=== PATIENT | female | born 1940 | race Two or more races ===

== ENCOUNTER → 2018-05-15 | Outpatient (CLI) | payer OTHER | END | disposition home or self-care (01) | LOC: LAB 06:53 | PROVIDERS: ATTEND Physician Assistant | DX: N39.0 Urinary tract infection, site not specified (principal) | CPT/HCPCS: 87086 ==

== ENCOUNTER → 2018-05-23 | Outpatient (CLI) | payer OTHER ==
[2018-05-23 08:08] LABS: Basophils # (auto) 0 uL; Eosinophils # (auto) 0.1 uL; Eosinophils % (auto) 1.4 % (0.0-7.0); Hematocrit 44.8 % (36.0-46.0); Lymphocytes # (auto) 1.5 uL; Lymphocytes % (auto) 30.2 % (10.0-50.0); Mean Corpuscular Hgb Conc. 33.5 g/dL (32.0-36.0); Mean Corpuscular Volume 89.6 fL (80.0-100.0); Monocytes # (auto) 0.3 uL; Monocytes % (auto) 6.6 % (0.0-12.0); Neutrophils % (auto) 60.8 % (37.0-80.0); Nucleated Red Blood Cells % 0.1 %; Platelet Count (auto) 211 10^3/uL (140-450); White Blood Cell 4.9 10^3/uL (4.4-10.8)
[2018-05-23 17:41] LABS: Potassium 4.5 mmol/L (3.5-5.1)
[2018-05-23 17:48] LABS: Albumin 3.3 g/dL (3.4-5.0); BUN/Creatinine Ratio 22.3; Calcium 8.8 mg/dL (8.5-10.1)
[2018-05-23 18:21] LABS: Bilirubin, Total 0.4 mg/dL (0.2-1.0); Total Protein 6.9 g/dL (6.4-8.2)
== END | disposition home or self-care (01) ==
LOC: LAB 07:21
PROVIDERS: ATTEND Physician Assistant
DX: Z12.11 Encounter for screening for malignant neoplasm of colon (principal); F41.9 Anxiety disorder, unspecified; E03.9 Hypothyroidism, unspecified; I10 Essential (primary) hypertension; K21.9 Gastro-esophageal reflux disease without esophagitis; N30.00 Acute cystitis without hematuria
CPT/HCPCS: 36415; 80053; 80061; 82270; 84443; 85025

== ENCOUNTER → 2018-05-29 | Outpatient (CLI) | payer OTHER | END | disposition home or self-care (01) | LOC: LAB 15:54 | PROVIDERS: ATTEND Physician Assistant | DX: N39.0 Urinary tract infection, site not specified (principal) | CPT/HCPCS: 87086; 87088; 87186 ==

== ENCOUNTER → 2018-10-07 | Outpatient (CLI) | payer OTHER | END | disposition home or self-care (01) | LOC: LAB 14:26 | PROVIDERS: ATTEND Internal Medicine | DX: N39.0 Urinary tract infection, site not specified (principal) | CPT/HCPCS: 87086 ==

== ENCOUNTER → 2018-10-28 | Outpatient (CLI) | payer OTHER ==
[2018-10-28 09:15] LABS: Cholesterol 195 mg/dL (< 200); HDL Cholesterol 62 mg/dL (40-59); LDL Cholesterol 120 mg/dL (< 100); Triglycerides 92 mg/dL (< 150)
== END | disposition home or self-care (01) ==
LOC: LAB 07:38
PROVIDERS: ATTEND Internal Medicine
DX: E03.9 Hypothyroidism, unspecified (principal)
CPT/HCPCS: 36415; 80061; 84443

== ENCOUNTER → 2018-11-26 | Outpatient (CLI) | payer OTHER | END | disposition home or self-care (01) | LOC: LAB 08:32 | PROVIDERS: ATTEND Internal Medicine | DX: N39.0 Urinary tract infection, site not specified (principal); E03.9 Hypothyroidism, unspecified | CPT/HCPCS: 36415; 83036; 84443; 87086 ==

== ENCOUNTER → 2018-12-15 | Outpatient (CLI) | payer OTHER ==
[2018-12-15 12:57] LABS: Urine Bacteria NONE SEEN /hpf (None Seen); Urine Blood Negative /uL (Negative); Urine Specific Gravity 1.021 (1.001-1.035); Urine WBC 4 /hpf (0 - 5)
== END | disposition home or self-care (01) ==
LOC: LAB 12:26
PROVIDERS: ATTEND Urology
DX: N39.0 Urinary tract infection, site not specified (principal)
CPT/HCPCS: 81001; 87086

== ENCOUNTER → 2019-01-05 | Outpatient (CLI) | payer OTHER | END | disposition home or self-care (01) | LOC: LAB 11:09 | PROVIDERS: ATTEND Urology | DX: N39.0 Urinary tract infection, site not specified (principal) | CPT/HCPCS: 36415; 82306; 82565; 84520 ==

== ENCOUNTER → 2019-05-25 | Outpatient (CLI) | payer OTHER ==
[2019-05-25 08:16] LABS: Cholesterol 194 mg/dL (< 200)
[2019-05-25 08:18] LABS: HDL Cholesterol 56 mg/dL (40-59); LDL Cholesterol 123 mg/dL (< 100); Triglycerides 96 mg/dL (< 150)
== END | disposition home or self-care (01) ==
LOC: LAB 07:29
PROVIDERS: ATTEND Internal Medicine
DX: Z12.11 Encounter for screening for malignant neoplasm of colon (principal); E03.9 Hypothyroidism, unspecified
CPT/HCPCS: 36415; 80061; 82270; 83036; 84443

== ENCOUNTER → 2019-09-02 | Outpatient (CLI) | payer OTHER | END | disposition home or self-care (01) | LOC: LAB 11:41 | PROVIDERS: ATTEND Internal Medicine | DX: I10 Essential (primary) hypertension (principal); R32 Unspecified urinary incontinence | CPT/HCPCS: 36415; 85652; 86038 ==

== ENCOUNTER → 2020-03-24 | Outpatient (CLI) | payer OTHER | END | disposition home or self-care (01) | LOC: LAB 15:17 | PROVIDERS: ATTEND Urology | DX: N39.0 Urinary tract infection, site not specified (principal) | CPT/HCPCS: 87086 ==

== ENCOUNTER → 2020-04-12 | Outpatient (CLI) | payer OTHER ==
[2020-04-12 10:44] LABS: Cholesterol 238 mg/dL (< 200); HDL Cholesterol 67 mg/dL (40-59); LDL Cholesterol 148 mg/dL (< 100); Triglycerides 84 mg/dL (< 150)
== END | disposition home or self-care (01) ==
LOC: LAB 09:40
PROVIDERS: ATTEND Internal Medicine
DX: Z12.11 Encounter for screening for malignant neoplasm of colon (principal); I10 Essential (primary) hypertension
CPT/HCPCS: 36415; 80061; 82270; 84443

== ENCOUNTER → 2020-05-13 | Outpatient (CLI) | payer OTHER ==
[2020-05-13 12:20] LABS: Albumin 3.2 g/dL (3.4-5.0); Bilirubin, Direct 0.1 mg/dL (0-0.2)
[2020-05-13 12:23] LABS: Bilirubin, Total 0.3 mg/dL (0.2-1.0); Total Protein 6.9 g/dL (6.4-8.2)
== END | disposition home or self-care (01) ==
LOC: LAB 11:37
PROVIDERS: ATTEND Internal Medicine
DX: E78.5 Hyperlipidemia, unspecified (principal)
CPT/HCPCS: 36415; 80076

== ENCOUNTER → 2020-07-19 | Outpatient (CLI) | payer OTHER ==
[2020-07-19 11:01] LABS: Albumin 3.5 g/dL (3.4-5.0); Bilirubin, Direct 0.2 mg/dL (0-0.2)
[2020-07-19 11:03] LABS: Bilirubin, Total 0.6 mg/dL (0.2-1.0); Total Protein 7.7 g/dL (6.4-8.2)
== END | disposition home or self-care (01) ==
LOC: LAB 10:06
PROVIDERS: ATTEND Internal Medicine
DX: E78.5 Hyperlipidemia, unspecified (principal)
CPT/HCPCS: 36415; 80061; 80076; 83036

== ENCOUNTER → 2020-08-23 | Outpatient (CLI) | payer OTHER | END | disposition home or self-care (01) | LOC: LAB 13:33 | PROVIDERS: ATTEND Internal Medicine | DX: E03.9 Hypothyroidism, unspecified (principal) | CPT/HCPCS: 36415; 84443 ==

== ENCOUNTER → 2021-03-01 | Outpatient (CLI) | payer OTHER | END | disposition home or self-care (01) | LOC: LAB 11:53 | PROVIDERS: ATTEND Internal Medicine | DX: R06.02 Shortness of breath (principal) | CPT/HCPCS: 36415; 83880; 85379 ==

== ENCOUNTER → 2021-11-02 | Outpatient (CLI) | payer OTHER ==
[2021-11-02 15:22] LABS: Urine Bacteria NONE SEEN /hpf (None Seen); Urine Blood Negative /uL (Negative); Urine Specific Gravity 1.016 (1.001-1.035); Urine WBC 1 /hpf (0 - 5)
== END | disposition home or self-care (01) ==
LOC: LAB 14:59
PROVIDERS: ATTEND Urology
DX: N39.0 Urinary tract infection, site not specified (principal)
CPT/HCPCS: 81001; 87086

== ENCOUNTER → 2021-12-21 | Outpatient (CLI) | payer OTHER | END | disposition home or self-care (01) | LOC: LAB 14:47 | PROVIDERS: ATTEND Urology | DX: N39.0 Urinary tract infection, site not specified (principal) | CPT/HCPCS: 87086 ==

== ENCOUNTER → 2022-02-13 | Outpatient (CLI) | payer OTHER ==
[2022-02-13 10:36] LABS: Basophils # (auto) 0 10 ^3/uL (0-0.2); Basophils % (auto) 0.6 % (0.0-2.0); Eosinophils # (auto) 0 10 ^3/uL (0-0.8); Eosinophils % (auto) 0.4 % (0.0-7.0); Hematocrit 43.8 % (36.0-46.0); Hemoglobin 14.5 g/dL (12.2-16.2); Lymphocytes # (auto) 1.7 10 ^3/uL (0.4-5.4); Lymphocytes % (auto) 31.7 % (10.0-50.0); Mean Corpuscular Hemoglobin 28.9 pg (28.0-32.0); Mean Corpuscular Volume 87.6 fL (80.0-100.0); Monocytes # (auto) 0.4 10 ^3/uL (0-1.3); Monocytes % (auto) 7.1 % (0.0-12.0); Neutrophils # (auto) 3.2 10 ^3/uL (1.6-8.6); Neutrophils % (auto) 60.2 % (37.0-80.0); Red Cell Distribution Width 12.9 % (11.8-14.3); White Blood Cell 5.3 10^3/uL (4.4-10.8)
[2022-02-13 11:33] LABS: Albumin 3.3 g/dL (3.4-5.0); BUN/Creatinine Ratio 14.9; Bilirubin, Total 0.5 mg/dL (0.2-1.0); Total Protein 7.2 g/dL (6.4-8.2)
== END | disposition home or self-care (01) ==
LOC: LAB 09:40
PROVIDERS: ATTEND Internal Medicine
DX: Z00.00 Encounter for general adult medical examination without abnormal findings (principal); Z12.11 Encounter for screening for malignant neoplasm of colon
CPT/HCPCS: 36415; 80053; 80061; 84443; 85025

== ENCOUNTER → 2022-05-24 | Outpatient (CLI) | payer OTHER ==
[2022-05-24 14:13] LABS: Urine Bacteria FEW /hpf (None Seen); Urine Blood Negative /uL (Negative); Urine Specific Gravity 1.015 (1.001-1.035); Urine WBC 3 /hpf (0 - 5)
== END | disposition home or self-care (01) ==
LOC: LAB 13:04
PROVIDERS: ATTEND Internal Medicine
DX: N39.0 Urinary tract infection, site not specified (principal)
CPT/HCPCS: 81001; 87086

== ENCOUNTER → 2022-11-06 | Outpatient (CLI) | payer OTHER ==
[2022-11-06 11:56] LABS: Potassium 4.1 mmol/L (3.5-5.1)
[2022-11-06 12:09] LABS: Albumin 3.5 g/dL (3.4-5.0); BUN/Creatinine Ratio 20.4 (10.0-20.0); Bilirubin, Total 0.5 mg/dL (0.2-1.0); Calcium 9.1 mg/dL (8.5-10.1); Total Protein 7.6 g/dL (6.4-8.2)
== END | disposition home or self-care (01) ==
LOC: LAB 10:21
PROVIDERS: ATTEND Internal Medicine
DX: Z00.00 Encounter for general adult medical examination without abnormal findings (principal); E03.9 Hypothyroidism, unspecified
CPT/HCPCS: 36415; 80053; 80061; 82306

== ENCOUNTER → 2022-12-06 | Outpatient (CLI) | payer OTHER ==
[2022-12-06 11:27] LABS: Calcium 9.5 mg/dL (8.5-10.1); Potassium 4.1 mmol/L (3.5-5.1)
[2022-12-06 11:31] LABS: BUN/Creatinine Ratio 18.4 (10.0-20.0)
== END | disposition home or self-care (01) ==
LOC: LAB 10:48
PROVIDERS: ATTEND Internal Medicine
DX: N18.30 Chronic kidney disease, stage 3 unspecified (principal)
CPT/HCPCS: 36415; 80048

== ENCOUNTER → 2023-01-02 | Outpatient (CLI) | payer OTHER ==
[2023-01-02 13:41] LABS: Urine Bacteria NONE SEEN /hpf (None Seen); Urine Blood Negative /uL (Negative); Urine Specific Gravity 1.005 (1.001-1.035); Urine WBC 1 /hpf (0 - 5)
== END | disposition home or self-care (01) ==
LOC: LAB 13:20
PROVIDERS: ATTEND Internal Medicine
DX: N39.0 Urinary tract infection, site not specified (principal)
CPT/HCPCS: 81001; 87086

== ENCOUNTER → 2023-02-04 | Outpatient (CLI) | payer OTHER ==
[2023-02-04 07:01] LABS: Urine Bacteria FEW /hpf (None Seen); Urine Blood Negative /uL (Negative); Urine Specific Gravity 1.017 (1.001-1.035); Urine WBC 5 /hpf (0 - 5)
== END | disposition home or self-care (01) ==
LOC: LAB 06:47
PROVIDERS: ATTEND Urology
DX: N39.0 Urinary tract infection, site not specified (principal)
CPT/HCPCS: 81001; 87086

== ENCOUNTER → 2023-03-06 | Outpatient (CLI) | payer OTHER ==
[2023-03-06 11:10] LABS: Urine Bacteria FEW /hpf (None Seen); Urine Blood Negative /uL (Negative); Urine WBC 40 /hpf (0 - 5)
== END | disposition home or self-care (01) ==
LOC: LAB 09:16
PROVIDERS: ATTEND Internal Medicine
DX: N39.0 Urinary tract infection, site not specified (principal)
CPT/HCPCS: 81001; 87086

== ENCOUNTER → 2023-04-11 | Outpatient (CLI) | payer OTHER | END | disposition home or self-care (01) | LOC: XYW 09:28 | PROVIDERS: ATTEND Student in an Organized Health Care Education/Training Program | DX: I51.7 Cardiomegaly (principal); I51.89 Other ill-defined heart diseases; R07.89 Other chest pain | CPT/HCPCS: 93306 ==

== ENCOUNTER → 2023-04-25 | Outpatient (CLI) | payer OTHER ==
[~2023-04-25] VITALS: Ht 154.9 cm; Wt 79.4 kg
[~2023-04-25] MED LIST: ADENOSINE 67 MG in GIVE UN-DILUTED 0 ML IV ONE
== END | disposition home or self-care (01) ==
LOC: XYW 08:34
PROVIDERS: ATTEND Internal Medicine
DX: Z01.810 Encounter for preprocedural cardiovascular examination (principal); R07.89 Other chest pain
CPT/HCPCS: 78452; 93017; A9500; J0153

== ENCOUNTER 2023-05-24 12:46 | Emergency (ER) | payer OTHER ==
[~2023-05-24] VITALS: Ht 154.9 cm; Wt 80.1 kg
[2023-05-24 13:34] VITALS: BP 176/68; PULSE 71; RESP 18; O2SAT 95
[2023-05-24] MEDS ORDERED: ACETAMINOPHEN 500 MG TAB PO ONE (14:00)
[2023-05-24 14:41] VITALS: TEMP 97.3
[2023-05-24] MEDS ORDERED: PRED20TA2 PO (14:58)
[2023-05-24] MEDS ORDERED: ACET-1080 PO (14:58)
== END 2023-05-24 15:06 | disposition home or self-care (01) ==
LOC: ER 12:46
DX: M50.30 Other cervical disc degeneration, unspecified cervical region (principal); R51.9 Headache, unspecified; I10 Essential (primary) hypertension; Z88.8 Allergy status to other drugs, medicaments and biological substances
CPT/HCPCS: 70450

== ENCOUNTER → 2023-06-11 | Outpatient (CLI) | payer OTHER ==
[~2023-06-11] MED LIST changes: +ACET-1080 PO; -ADENOSINE 67 MG in GIVE UN-DILUTED 0 ML IV ONE; +PRED20TA2 PO
[2023-06-11 10:24] LABS: Urine Bacteria None Seen /hpf (None Seen); Urine WBC None Seen /hpf (0 - 5)
[2023-06-11 10:32] LABS: Basophils # (auto) 0 10 ^3/uL (0-0.2); Basophils % (auto) 0.4 % (0.0-2.0); Eosinophils # (auto) 0 10 ^3/uL (0-0.8); Eosinophils % (auto) 0.7 % (0.0-7.0); Hematocrit 44.7 % (36.0-46.0); Hemoglobin 15.1 g/dL (12.2-16.2); Lymphocytes # (auto) 1.9 10 ^3/uL (0.4-5.4); Lymphocytes % (auto) 28.8 % (10.0-50.0); Mean Corpuscular Hemoglobin 29.6 pg (28.0-32.0); Mean Corpuscular Hgb Conc. 33.8 g/dL (32.0-36.0); Mean Corpuscular Volume 87.5 fL (80.0-100.0); Monocytes # (auto) 0.5 10 ^3/uL (0-1.3); Monocytes % (auto) 8.2 % (0.0-12.0); Neutrophils % (auto) 61.9 % (37.0-80.0); Nucleated Red Blood Cells % 0.1 %; Red Blood Cells 5.11 10^6/uL (4.0-5.20); Red Cell Distribution Width 13.3 % (11.8-14.3); White Blood Cell 6.4 10^3/uL (4.4-10.8)
[2023-06-11 11:35] LABS: Anion Gap 6 (5-15); Carbon Dioxide 30 mmol/L (20-30); Chloride 104 mmol/L (98-107); Potassium 4.5 mmol/L (3.5-5.1); Sodium 140 mmol/L (136-145)
[2023-06-11 11:36] LABS: Calcium 9.3 mg/dL (8.5-10.1)
[2023-06-11 11:41] LABS: BUN/Creatinine Ratio 15.1 (10.0-20.0); Blood Urea Nitrogen 16 mg/dL (9-23); Glucose 92 mg/dL (74-106)
[2023-06-11 13:44] LABS: Urine Blood Negative /uL (Negative); Urine Clarity Clear (Clear); Urine Color Straw (Yellow); Urine Protein, UAD Negative (Negative); Urine Specific Gravity 1.013 (1.001-1.035); Urine Urobilinogen Normal (Negative); Urine pH 7.5 (5.0-8.0)
== END | disposition home or self-care (01) ==
LOC: LAB 10:16
PROVIDERS: ATTEND Internal Medicine
DX: Z12.11 Encounter for screening for malignant neoplasm of colon (principal); N18.30 Chronic kidney disease, stage 3 unspecified
CPT/HCPCS: 36415; 80048; 81001; 82270; 85025

== ENCOUNTER 2023-07-18 09:51 | Day surgery (SDC) | payer OTHER ==
[2023-07-17 14:52] LABS: Basophils # (auto) 0 10 ^3/uL (0-0.2); Basophils % (auto) 0.4 % (0.0-2.0); Eosinophils # (auto) 0 10 ^3/uL (0-0.8); Eosinophils % (auto) 0.5 % (0.0-7.0); Hematocrit 44.3 % (36.0-46.0); Hemoglobin 14.8 g/dL (12.2-16.2); Lymphocytes # (auto) 2.4 10 ^3/uL (0.4-5.4); Lymphocytes % (auto) 27.2 % (10.0-50.0); Mean Corpuscular Hemoglobin 28.9 pg (28.0-32.0); Mean Corpuscular Hgb Conc. 33.3 g/dL (32.0-36.0); Mean Corpuscular Volume 86.7 fL (80.0-100.0); Monocytes # (auto) 0.6 10 ^3/uL (0-1.3); Monocytes % (auto) 6.8 % (0.0-12.0); Neutrophils # (auto) 5.8 10 ^3/uL (1.6-8.6); Neutrophils % (auto) 65.1 % (37.0-80.0); Red Blood Cells 5.11 10^6/uL (4.0-5.20); Red Cell Distribution Width 13.3 % (11.8-14.3); White Blood Cell 8.9 10^3/uL (4.4-10.8)
[2023-07-17 14:59] LABS: Urine Bacteria NONE SEEN /hpf (None Seen); Urine Blood Negative /uL (Negative); Urine Clarity HAZY (Clear); Urine Color Yellow (Yellow); Urine Protein, UAD Negative (Negative); Urine Specific Gravity 1.021 (1.001-1.035); Urine Urobilinogen Normal (Negative); Urine WBC 74 /hpf (0 - 5); Urine WBC Clumps PRESENT /hpf (None Seen)
[2023-07-17 15:23] LABS: INR 1.03 (0.9-1.15); Partial Thromboplastin Time 33.3 SEC (24.5-34.5); Prothrombin Time 10.8 sec (9.3-11.8)
[2023-07-17 16:17] LABS: Alanine Aminotransferase 23 U/L (7-40); Albumin 4.4 g/dL (3.2-4.8); Alkaline Phosphatase 93 U/L (46-116); Anion Gap 6 (5-15); Aspartate Aminotransferase 19 U/L (13-40); BUN/Creatinine Ratio 16.9 (10.0-20.0); Bilirubin, Total 0.4 mg/dL (0.2-1.0); Blood Urea Nitrogen 20 mg/dL (9-23); Calcium 9.6 mg/dL (8.7-10.4); Carbon Dioxide 29 mmol/L (20-30); Chloride 105 mmol/L (98-107); Potassium 4.5 mmol/L (3.5-5.1); Sodium 140 mmol/L (136-145); Total Protein 7.1 g/dL (5.7-8.2)
[2023-07-17 17:00] LABS: Glucose 99 mg/dL (74-106)
[~2023-07-18] VITALS: Ht 157.5 cm; Wt 79.4 kg
[~2023-07-18 09:51] MED LIST changes: -ACET-1080 PO; +ALEN70SO2 OR; +ASCO500T11 PO; +ASPI1TAB20 PO; +ATOR10TA52 PO; +B-CO1CAP18 PO; +BACL20TA PO; +BLAC1CAP4 PO; +CALC1TAB92 PO; +CHOL500046 PO; +CRAN250T PO; +FLUO20TA36 PO; +HYDR25TA5 PO; +LACTCAP35 OR; +LEV100T PO; +LISI20TA56 PO; +MULT-1018 OR; +OMEGCAP2 OR; +OXYB5TAB10 PO; +PANT40TA2 PO; -PRED20TA2 PO; +ZINC50TA7 PO
[2023-07-18] MEDS ORDERED: ceFAZolin 2 GM/D5W100ml 100 ML IV ONE (12:50)
[2023-07-18] MEDS ORDERED: IOHEXOL 300 MG/ML 100ML BOTTLE IJ ONE (13:24)
[2023-07-18] MEDS ORDERED: ONDANSETRON HCL 4 MG/2 ML VIAL IV PRN (13:30)
[2023-07-18] MEDS ORDERED: PROPOFOL 10 MG/ML 20 ML IV ONE (13:47)
[2023-07-18] MEDS ORDERED: fentaNYL CITRATE 100 MCG/2 ML VL ONE (13:47)
[2023-07-18] MEDS ORDERED: DexAMETHasone SOD PHOS 10MG/1ML VIAL INJ ONE (13:48)
[2023-07-18] MEDS ORDERED: ONDANSETRON HCL 4 MG/2 ML VIAL ONE (13:48)
[2023-07-18 13:58] VITALS: TEMP 98; O2SAT 100
[2023-07-18 14:58] VITALS: BP 110/46; PULSE 93; RESP 14; O2SAT 92
== END 2023-07-18 15:10 | disposition home or self-care (01) ==
LOC: SUR 09:51
PROVIDERS: ATTEND Urology
DX: N13.30 Unspecified hydronephrosis (principal)
CPT/HCPCS: 36415; 52005; 74018; 76000; 80053; 81001; 85025; 85610; 85730; 87086; C1758; J1100; J2405; J2704; J3010; Q9967

== ENCOUNTER → 2023-08-06 | Outpatient (CLI) | payer OTHER ==
[2023-08-06 14:55] LABS: Urine Bacteria NONE SEEN /hpf (None Seen); Urine Blood Negative /uL (Negative); Urine Clarity Clear (Clear); Urine Color Yellow (Yellow); Urine Protein, UAD Negative (Negative); Urine Specific Gravity 1.017 (1.001-1.035); Urine Urobilinogen Normal (Negative); Urine WBC 4 /hpf (0 - 5); Urine pH 7.5 (5.0-8.0)
== END | disposition home or self-care (01) ==
LOC: LAB 14:10
PROVIDERS: ATTEND Urology
DX: N13.30 Unspecified hydronephrosis (principal); N39.0 Urinary tract infection, site not specified
CPT/HCPCS: 81001; 87086; 87088; 87186

== ENCOUNTER → 2023-08-29 | Outpatient (CLI) | payer OTHER ==
[2023-08-29 16:01] LABS: Urine Bacteria NONE SEEN /hpf (None Seen); Urine Blood Negative /uL (Negative); Urine Clarity Clear (Clear); Urine Color Yellow (Yellow); Urine Hyaline Cast MOD /lpf (0 - 2); Urine Mucus FEW (None Seen); Urine Protein, UAD TRACE (Negative); Urine Specific Gravity 1.022 (1.001-1.035); Urine Urobilinogen Normal (Negative); Urine WBC 2 /hpf (0 - 5)
== END | disposition home or self-care (01) ==
LOC: LAB 15:34
PROVIDERS: ATTEND Urology
DX: N39.0 Urinary tract infection, site not specified (principal)
CPT/HCPCS: 81001; 87086

== ENCOUNTER → 2023-09-10 | Outpatient (CLI) | payer OTHER ==
[2023-09-10 15:49] LABS: Chloride 106 mmol/L (98-107); Sodium 138 mmol/L (136-145)
[2023-09-10 15:50] LABS: Anion Gap 5 (5-15); Carbon Dioxide 27 mmol/L (20-30)
[2023-09-10 15:51] LABS: Calcium 9.8 mg/dL (8.5-10.1)
[2023-09-10 15:55] LABS: Glucose 92 mg/dL (74-106)
[2023-09-10 15:56] LABS: BUN/Creatinine Ratio 20.2 (10.0-20.0); Blood Urea Nitrogen 25 mg/dL (9-23)
== END | disposition home or self-care (01) ==
LOC: LAB 15:16
PROVIDERS: ATTEND Internal Medicine
DX: N18.30 Chronic kidney disease, stage 3 unspecified (principal); N39.0 Urinary tract infection, site not specified
CPT/HCPCS: 36415; 80048; 84443

== ENCOUNTER → 2023-09-18 | Outpatient (CLI) | payer OTHER | END | disposition home or self-care (01) | LOC: LAB 16:18 | PROVIDERS: ATTEND Internal Medicine | DX: N39.0 Urinary tract infection, site not specified (principal) | CPT/HCPCS: 87086 ==

== ENCOUNTER 2023-10-03 00:46 | Inpatient (IN) | payer OTHER ==
[~2023-10-03] VITALS: Ht 154.9 cm; Wt 80.0 kg
[2023-10-03] MEDS: IOHEXOL 350 MG/ML 100ML IJ ONE ×2 (01:24→02:46)
[2023-10-03 01:25] VITALS: PULSE 78; RESP 22; O2SAT 94
[2023-10-03] MEDS ORDERED: VANCOMYCIN PER PHARMACY 0 MG IV SCH (01:30)
[2023-10-03] MEDS: ALBUMIN 25% 100 ML IV ONE (01:58)
[2023-10-03] MEDS: ONDANSETRON HCL 4 MG/2 ML VIAL IV ONE ×2 (01:59→06:57)
[2023-10-03] MEDS: PANTOPRAZOLE 40 MG/10 ML VIAL INJ IV ONE (01:59)
[2023-10-03] MEDS: SODIUM CHLORIDE 0.9% 2,100 ML IV ONE (01:59)
[2023-10-03] MEDS: fentaNYL CITRATE 100 MCG/2 ML VL IV ONE ×2 (02:07→06:57)
[2023-10-03 02:10] LABS: Basophils # (auto) 0 10 ^3/uL (0-0.2); Eosinophils # (auto) 0 10 ^3/uL (0-0.8); Eosinophils % (auto) 0.1 % (0.0-7.0); Hematocrit 42.8 % (36.0-46.0); Hemoglobin 13.8 g/dL (12.2-16.2); Lymphocytes # (auto) 0.6 10 ^3/uL (0.4-5.4); Lymphocytes % (auto) 4.9 % (10.0-50.0); Mean Corpuscular Hemoglobin 28.7 pg (28.0-32.0); Mean Corpuscular Hgb Conc. 32.3 g/dL (32.0-36.0); Mean Corpuscular Volume 88.8 fL (80.0-100.0); Monocytes # (auto) 0.2 10 ^3/uL (0-1.3); Nucleated Red Blood Cells % 0.1 %; Red Blood Cells 4.82 10^6/uL (4.0-5.20); Red Cell Distribution Width 13.3 % (11.8-14.3); White Blood Cell 11.8 10^3/uL (4.4-10.8)
[2023-10-03 02:15] LABS: Alanine Aminotransferase 971 U/L (7-40); Alkaline Phosphatase 465 U/L (46-116); Anion Gap 12 (5-15); BUN/Creatinine Ratio 14.1 (10.0-20.0); Bilirubin, Total 1.1 mg/dL (0.2-1.0); Blood Urea Nitrogen 24 mg/dL (9-23); Calcium 9.3 mg/dL (8.7-10.4); Carbon Dioxide 21 mmol/L (20-30); Chloride 101 mmol/L (98-107); Glucose 190 mg/dL (74-106); Potassium 3.7 mmol/L (3.5-5.1); Sodium 134 mmol/L (136-145)
[2023-10-03 02:16] LABS: Total Protein 6.7 g/dL (5.7-8.2)
[2023-10-03 02:25] LABS: Lactic Acid w/Reflex 2.5 mmol/L (0.4-2.0)
[2023-10-03 02:26] LABS: Aspartate Aminotransferase 2211 U/L (13-40)
[2023-10-03 02:48] LABS: Magnesium 1.7 mg/dL (1.6-2.6)
[2023-10-03 04:19] LABS: INR 1.14 (0.9-1.15); Partial Thromboplastin Time 26.8 SEC (24.5-34.5); Prothrombin Time 11.9 sec (9.3-11.8)
[2023-10-03] MEDS: VANCOMYCIN 1GM/200ML 200 ML IV SCH (05:09)
[2023-10-03] MEDS: PIPERACILLIN-TAZOB 3.375GM 100 ML IV SCH ×2 (06:22→12:00)
[2023-10-03] MEDS: SODIUM CHLORIDE 0.9% 1,000 ML IV SCH (09:45)
[2023-10-03] MEDS ORDERED: DOCUSATE SOD 100 MG CAP PO PRN (09:45)
[2023-10-03] MEDS ORDERED: MORPHINE SULFATE 4 MG/ML SYR/VIAL IV PRN (09:45)
[2023-10-03] MEDS ORDERED: MORPHINE SULFATE INJ 2 MG/ml SYRG IV PRN (09:45)
[2023-10-03] MEDS ORDERED: LORazepam 2MG/ML-1ML VIAL IV PRN (09:45)
[2023-10-03] MEDS: PANTOPRAZOLE 40 MG/10 ML VIAL INJ IV SCH (10:00)
[2023-10-03] MEDS: LEVOTHYROXINE SODIUM 100 MCG TAB PO SCH (10:00)
[2023-10-03 11:45] LABS: Hepatitis B Surface Antigen Negative (Negative)
[2023-10-03] MEDS ORDERED: PIPERACILLIN-TAZOB 3.375GM 100 ML IV SCH ×2 (12:00→14:00)
[2023-10-03 12:05] LABS: Hepatitis A Ab IgM Negative
[2023-10-03 12:06] LABS: Hepatitis B Core IgM Negative
[2023-10-03 12:07] LABS: Hepatitis C Antibody Negative (Negative)
[2023-10-03 14:19] LABS: Urine Bacteria FEW /hpf (None Seen); Urine Blood 2+ /uL (Negative); Urine Clarity Clear (Clear); Urine Color Yellow (Yellow); Urine Mucus FEW (None Seen); Urine Protein, UAD 1+ (Negative); Urine Specific Gravity 1.025 (1.001-1.035); Urine WBC 2 /hpf (0 - 5)
[2023-10-03 14:26] LABS: Creatinine, Urine 47.32 mg/dL (30.0-125.0)
[2023-10-03 19:30] VITALS: PULSE 69; RESP 16; O2SAT 95
[2023-10-04] VITALS (8 sets, daily range): BP systolic 105–126; BP diastolic 44–58; PULSE 48–98; RESP 18–19; TEMP 97.3–98.4; O2SAT 91–97
[2023-10-04 05:39] LABS: Basophils # (auto) 0 10 ^3/uL (0-0.2); Basophils % (auto) 0.4 % (0.0-2.0); Eosinophils # (auto) 0.2 10 ^3/uL (0-0.8); Eosinophils % (auto) 3.2 % (0.0-7.0); Hematocrit 34.9 % (36.0-46.0); Hemoglobin 11.7 g/dL (12.2-16.2); Lymphocytes # (auto) 1.3 10 ^3/uL (0.4-5.4); Lymphocytes % (auto) 20.4 % (10.0-50.0); Mean Corpuscular Hgb Conc. 33.5 g/dL (32.0-36.0); Mean Corpuscular Volume 86.5 fL (80.0-100.0); Monocytes # (auto) 0.5 10 ^3/uL (0-1.3); Monocytes % (auto) 7.1 % (0.0-12.0); Neutrophils # (auto) 4.3 10 ^3/uL (1.6-8.6); Neutrophils % (auto) 68.9 % (37.0-80.0); Nucleated Red Blood Cells % 0.1 %; Red Blood Cells 4.03 10^6/uL (4.0-5.20); Red Cell Distribution Width 12.9 % (11.8-14.3); White Blood Cell 6.3 10^3/uL (4.4-10.8)
[2023-10-04 06:06] LABS: Albumin 3.7 g/dL (3.2-4.8); Alkaline Phosphatase 398 U/L (46-116); Anion Gap 7 (5-15); Aspartate Aminotransferase > 1000 U/L (13-40); BUN/Creatinine Ratio 15.2 (10.0-20.0); Blood Urea Nitrogen 19 mg/dL (9-23); Calcium 8.7 mg/dL (8.7-10.4); Carbon Dioxide 26 mmol/L (20-30); Chloride 109 mmol/L (98-107); Glucose 82 mg/dL (74-106); Lipase 35 U/L (12-53); Potassium 3.6 mmol/L (3.5-5.1); Sodium 142 mmol/L (136-145)
[2023-10-04 06:07] LABS: Bilirubin, Total 0.9 mg/dL (0.2-1.0); Total Protein 5.9 g/dL (5.7-8.2)
[2023-10-04 06:17] LABS: Alanine Aminotransferase 1629 U/L (7-40)
[2023-10-04] MEDS ORDERED: LEVO88TA4 PO (09:11)
[2023-10-04] MEDS: LEVOTHYROXINE SODIUM 88 MCG TAB PO ONE (11:47)
[2023-10-04] MEDS ORDERED: LINEZOLID 600MG/300ML 300 ML IV SCH (16:00)
[2023-10-04] MEDS ORDERED: ALEN70TA74 PO (17:44)
[2023-10-04] MEDS ORDERED: LISI10TA34 PO (17:44)
[2023-10-04] MEDS ORDERED: HYDR12.55 PO (17:44)
[2023-10-04] MEDS ORDERED: OXYB5TAB24 PO (17:47)
[2023-10-04] MEDS ORDERED: BACL10TA PO (17:49)
[2023-10-04] MEDS: LINEZOLID 600MG/300ML 300 ML IV SCH (18:31)
[2023-10-05] VITALS (7 sets, daily range): BP systolic 113–137; BP diastolic 52–61; PULSE 59–70; RESP 14–18; TEMP 97.9–98.3; O2SAT 90–95
[2023-10-05] MEDS: ONDANSETRON HCL 4 MG/2 ML VIAL IV PRN (04:00)
[2023-10-05 06:09] LABS: Basophils # (auto) 0 10 ^3/uL (0-0.2); Basophils % (auto) 0.5 % (0.0-2.0); Eosinophils # (auto) 0.2 10 ^3/uL (0-0.8); Eosinophils % (auto) 3.2 % (0.0-7.0); Hematocrit 35.2 % (36.0-46.0); Hemoglobin 11.7 g/dL (12.2-16.2); Lymphocytes # (auto) 1.5 10 ^3/uL (0.4-5.4); Lymphocytes % (auto) 27.2 % (10.0-50.0); Mean Corpuscular Hemoglobin 28.8 pg (28.0-32.0); Mean Corpuscular Hgb Conc. 33.3 g/dL (32.0-36.0); Mean Corpuscular Volume 86.6 fL (80.0-100.0); Monocytes # (auto) 0.5 10 ^3/uL (0-1.3); Monocytes % (auto) 9.4 % (0.0-12.0); Neutrophils # (auto) 3.4 10 ^3/uL (1.6-8.6); Neutrophils % (auto) 59.7 % (37.0-80.0); Red Blood Cells 4.06 10^6/uL (4.0-5.20); Red Cell Distribution Width 12.9 % (11.8-14.3); White Blood Cell 5.6 10^3/uL (4.4-10.8)
[2023-10-05] MEDS: LEVOTHYROXINE SODIUM 88 MCG TAB PO SCH (06:13)
[2023-10-05 06:14] LABS: INR 1.09 (0.9-1.15); Prothrombin Time 11.4 sec (9.3-11.8)
[2023-10-05 06:16] LABS: Alanine Aminotransferase 972 U/L (7-40); Albumin 3.6 g/dL (3.2-4.8); Alkaline Phosphatase 346 U/L (46-116); Amylase 62 U/L (30-118); Anion Gap 7 (5-15); Aspartate Aminotransferase 494 U/L (13-40); BUN/Creatinine Ratio 13.4 (10.0-20.0); Blood Urea Nitrogen 15 mg/dL (9-23); Calcium 8.8 mg/dL (8.7-10.4); Carbon Dioxide 25 mmol/L (20-30); Chloride 108 mmol/L (98-107); Glucose 120 mg/dL (74-106); Lipase 35 U/L (12-53); Potassium 3.8 mmol/L (3.5-5.1); Sodium 140 mmol/L (136-145)
[2023-10-05 06:17] LABS: Total Protein 5.9 g/dL (5.7-8.2)
[2023-10-05 06:21] LABS: Bilirubin, Total 0.5 mg/dL (0.2-1.0)
[2023-10-05] MEDS: LINEZOLID 600MG/300ML 300 ML IV SCH (08:51)
[2023-10-05] MEDS: cefTRIAXone 1GM/50ML D5W 50 ML IV ONE (14:35)
[2023-10-06] VITALS (7 sets, daily range): BP systolic 110–142; BP diastolic 43–69; PULSE 52–66; RESP 16–18; TEMP 98–98.3; O2SAT 92–98
[2023-10-06 06:21] LABS: Basophils # (auto) 0 10 ^3/uL (0-0.2); Basophils % (auto) 0.5 % (0.0-2.0); Eosinophils # (auto) 0.1 10 ^3/uL (0-0.8); Eosinophils % (auto) 1.9 % (0.0-7.0); Hematocrit 35.4 % (36.0-46.0); Hemoglobin 11.9 g/dL (12.2-16.2); Lymphocytes # (auto) 1.3 10 ^3/uL (0.4-5.4); Lymphocytes % (auto) 31.5 % (10.0-50.0); Mean Corpuscular Hemoglobin 29.2 pg (28.0-32.0); Mean Corpuscular Hgb Conc. 33.5 g/dL (32.0-36.0); Mean Corpuscular Volume 87.1 fL (80.0-100.0); Monocytes # (auto) 0.4 10 ^3/uL (0-1.3); Monocytes % (auto) 10.1 % (0.0-12.0); Neutrophils # (auto) 2.2 10 ^3/uL (1.6-8.6); Nucleated Red Blood Cells % 0.2 %; Red Blood Cells 4.07 10^6/uL (4.0-5.20); Red Cell Distribution Width 12.8 % (11.8-14.3)
[2023-10-06 06:27] LABS: Alanine Aminotransferase 984 U/L (7-40); Albumin 3.5 g/dL (3.2-4.8); Alkaline Phosphatase 521 U/L (46-116); Anion Gap 6 (5-15); Aspartate Aminotransferase 714 U/L (13-40); BUN/Creatinine Ratio 11.2 (10.0-20.0); Bilirubin, Total 0.6 mg/dL (0.2-1.0); Blood Urea Nitrogen 11 mg/dL (9-23); Carbon Dioxide 25 mmol/L (20-30); Chloride 109 mmol/L (98-107); Glucose 108 mg/dL (74-106); Lipase 49 U/L (12-53); Potassium 3.9 mmol/L (3.5-5.1); Sodium 140 mmol/L (136-145); Total Protein 5.8 g/dL (5.7-8.2)
[2023-10-06] MEDS: SODIUM CHLORIDE 0.9% 1,000 ML IV SCH (08:50)
[2023-10-06] MEDS: cefTRIAXone 1GM/50ML D5W 50 ML IV SCH (12:33)
[2023-10-06 15:30] LABS: Urine Bacteria NONE SEEN /hpf (None Seen); Urine Blood Negative /uL (Negative); Urine Clarity Clear (Clear); Urine Color Colorless (Yellow); Urine Protein, UAD Negative (Negative); Urine Specific Gravity 1.007 (1.001-1.035); Urine Urobilinogen Normal (Negative); Urine WBC 1 /hpf (0 - 5)
[2023-10-07 05:00] VITALS: BP 130/58; PULSE 53; RESP 18; TEMP 98.2; O2SAT 97
[2023-10-07 08:00] VITALS: PULSE 51
[2023-10-07 08:05] VITALS: PULSE 55; RESP 18; O2SAT 92
[2023-10-07 09:10] VITALS: BP 112/67; PULSE 55; RESP 17; TEMP 97.9; O2SAT 95
[2023-10-07 12:07] VITALS: BP 135/58; PULSE 59; RESP 17; TEMP 97.7; O2SAT 93
[2023-10-07 16:19] VITALS: BP 141/61; PULSE 65; RESP 18; TEMP 98.2; O2SAT 93
== END 2023-10-07 19:30 | disposition short-term general hospital (02) | DRG 872 ==
LOC: ER 00:46 → TELE 09:53 → TELE-EAST 23:43 → EAST 10-04 09:53
PROVIDERS: ADMIT Nurse Practitioner Family; ATTEND Internal Medicine
DX: A41.51 Sepsis due to Escherichia coli [E. coli] (principal); N17.9 Acute kidney failure, unspecified; K80.30 Calculus of bile duct with cholangitis, unspecified, without obstruction; K21.9 Gastro-esophageal reflux disease without esophagitis; R74.01 Elevation of levels of liver transaminase levels; E78.5 Hyperlipidemia, unspecified; I95.9 Hypotension, unspecified; M81.0 Age-related osteoporosis without current pathological fracture; I12.9 Hypertensive chronic kidney disease with stage 1 through stage 4 chronic kidney disease, or unspecified chronic kidney disease; E11.22 Type 2 diabetes mellitus with diabetic chronic kidney disease; N18.30 Chronic kidney disease, stage 3 unspecified; E03.9 Hypothyroidism, unspecified; E78.00 Pure hypercholesterolemia, unspecified; R79.89 Other specified abnormal findings of blood chemistry; Z88.1 Allergy status to other antibiotic agents; Z88.8 Allergy status to other drugs, medicaments and biological substances; Z79.899 Other long term (current) drug therapy; Z90.49 Acquired absence of other specified parts of digestive tract
CPT/HCPCS: 36415; 71260; 74177; 74181; 76705; 80053; 80074; 81001; 82150; 82550; 82553; 82570; 83036; 83605; 83690; 83735; 84300; 84484; 85025; 85379; 85384; 85610; 85730; 86850; 86900; 86901; 87040; 87077; 87086; 87186; 93005; 93970; 96365; 96375; 99291; C9113; G0378; J2405; J2543; P9047

== ENCOUNTER 2023-10-08 19:11 | Inpatient (IN) | payer OTHER ==
[~2023-10-08] VITALS: Ht 157.5 cm; Wt 77.9 kg
[~2023-10-08 19:11] MED LIST changes: -ALEN70SO2 OR; +ALEN70TA74 PO; +BACL10TA PO; -BACL20TA PO; +HYDR12.55 PO; -HYDR25TA5 PO; -LEV100T PO; +LEVO88TA4 PO; +LISI10TA34 PO; -LISI20TA56 PO; -OXYB5TAB10 PO; +OXYB5TAB24 PO
[2023-10-08 20:45] VITALS: BP 116/71; PULSE 60; RESP 19; TEMP 97.4; O2SAT 95
[2023-10-08 21:03] VITALS: PULSE 61; RESP 19; O2SAT 95
[2023-10-08] MEDS ORDERED: ONDANSETRON HCL 4 MG/2 ML VIAL IV PRN (22:45)
[2023-10-08] MEDS ORDERED: ACETAMINOPHEN 325 MG TAB PO PRN (22:45)
[2023-10-08] MEDS ORDERED: HYDROcodone-ACET 5/325MG TAB PO PRN (22:45)
[2023-10-08 23:49] VITALS: BP 116/71; PULSE 60; RESP 19; TEMP 97.4; O2SAT 95
[2023-10-09 01:23] LABS: Alanine Aminotransferase 448 U/L (7-40); Albumin 3.4 g/dL (3.2-4.8); Alkaline Phosphatase 324 U/L (46-116); Anion Gap 6 (5-15); Aspartate Aminotransferase 76 U/L (13-40); BUN/Creatinine Ratio 10.9 (10.0-20.0); Blood Urea Nitrogen 11 mg/dL (9-23); Calcium 8.9 mg/dL (8.7-10.4); Carbon Dioxide 25 mmol/L (20-30); Chloride 109 mmol/L (98-107); Glucose 144 mg/dL (74-106); Potassium 3.9 mmol/L (3.5-5.1); Sodium 140 mmol/L (136-145)
[2023-10-09 01:24] LABS: Basophils # (auto) 0 10 ^3/uL (0-0.2); Basophils % (auto) 0.2 % (0.0-2.0); Bilirubin, Total 0.5 mg/dL (0.2-1.0); Eosinophils # (auto) 0 10 ^3/uL (0-0.8); Eosinophils % (auto) 0.1 % (0.0-7.0); Hematocrit 36.2 % (36.0-46.0); Hemoglobin 12.1 g/dL (12.2-16.2); Lymphocytes # (auto) 1.3 10 ^3/uL (0.4-5.4); Lymphocytes % (auto) 14.5 % (10.0-50.0); Mean Corpuscular Hgb Conc. 33.3 g/dL (32.0-36.0); Mean Corpuscular Volume 87.1 fL (80.0-100.0); Monocytes # (auto) 0.7 10 ^3/uL (0-1.3); Monocytes % (auto) 7.2 % (0.0-12.0); Neutrophils # (auto) 7.1 10 ^3/uL (1.6-8.6); Red Blood Cells 4.15 10^6/uL (4.0-5.20); Total Protein 5.6 g/dL (5.7-8.2); White Blood Cell 9.1 10^3/uL (4.4-10.8)
[2023-10-09 04:45] VITALS: BP 106/48; PULSE 57; RESP 19; TEMP 97.4; O2SAT 92
[2023-10-09] MEDS: LEVOTHYROXINE SODIUM 88 MCG TAB PO SCH (06:43)
[2023-10-09 08:00] VITALS: PULSE 70; RESP 20; O2SAT 94
[2023-10-09 08:31] VITALS: BP 118/53; PULSE 70; RESP 20; TEMP 98.3; O2SAT 94
[2023-10-09] MEDS: hydroCHLOROthiazide 25 MG TAB PO SCH (11:46)
[2023-10-09] MEDS: LISINOPRIL 10 MG TAB PO SCH (11:46)
[2023-10-09 14:48] VITALS: BP 118/53; PULSE 70; RESP 20; TEMP 98.3; O2SAT 94
[2023-10-09] MEDS ORDERED: ATORVASTATIN 20 MG TAB PO SCH (22:00)
== END 2023-10-09 15:48 | disposition home or self-care (01) | DRG 445 ==
LOC: TELE-WESTW 20:36 → UNDOADMIN 20:36 → WEST WING 22:43 → TELE-WESTW 22:43
PROVIDERS: ADMIT Internal Medicine; ATTEND Internal Medicine
DX: K80.50 Calculus of bile duct without cholangitis or cholecystitis without obstruction (principal); Q44.0 Agenesis, aplasia and hypoplasia of gallbladder; I10 Essential (primary) hypertension; E89.0 Postprocedural hypothyroidism; H91.90 Unspecified hearing loss, unspecified ear; R74.01 Elevation of levels of liver transaminase levels; Z88.1 Allergy status to other antibiotic agents
CPT/HCPCS: 36415; 80053; 85025; G0378

== ENCOUNTER → 2023-10-11 | Outpatient (CLI) | payer OTHER ==
[2023-10-11 09:24] LABS: Alanine Aminotransferase 259 U/L (7-40); Alkaline Phosphatase 321 U/L (46-116); Anion Gap 7 (5-15); Aspartate Aminotransferase 48 U/L (13-40); BUN/Creatinine Ratio 9.7 (10.0-20.0); Blood Urea Nitrogen 10 mg/dL (9-23); Calcium 10.1 mg/dL (8.5-10.1); Carbon Dioxide 29 mmol/L (20-30); Chloride 106 mmol/L (98-107); Glucose 90 mg/dL (74-106); Potassium 3.9 mmol/L (3.5-5.1); Sodium 142 mmol/L (136-145)
[2023-10-11 09:26] LABS: Albumin 4.2 g/dL (3.2-4.8); Bilirubin, Direct 0.3 mg/dL (<0.3); Bilirubin, Total 0.7 mg/dL (0.2-1.0)
== END | disposition home or self-care (01) ==
LOC: LAB 08:37
PROVIDERS: ATTEND Internal Medicine
DX: K80.50 Calculus of bile duct without cholangitis or cholecystitis without obstruction (principal)
CPT/HCPCS: 36415; 80053; 82248

== ENCOUNTER → 2023-10-16 | Outpatient (CLI) | payer OTHER ==
[2023-10-16 15:36] LABS: Alanine Aminotransferase 102 U/L (7-40); Albumin 4.3 g/dL (3.2-4.8); Alkaline Phosphatase 237 U/L (46-116); Anion Gap 5 (5-15); Aspartate Aminotransferase 24 U/L (13-40); BUN/Creatinine Ratio 15.9 (10.0-20.0); Bilirubin, Total 0.5 mg/dL (0.2-1.0); Blood Urea Nitrogen 22 mg/dL (9-23); Calcium 9.7 mg/dL (8.5-10.1); Carbon Dioxide 28 mmol/L (20-30); Chloride 104 mmol/L (98-107); Glucose 107 mg/dL (74-106); Potassium 4.4 mmol/L (3.5-5.1); Sodium 137 mmol/L (136-145); Total Protein 7.2 g/dL (5.7-8.2)
== END | disposition home or self-care (01) ==
LOC: LAB 14:33
PROVIDERS: ATTEND Internal Medicine
DX: E03.9 Hypothyroidism, unspecified (principal); R79.89 Other specified abnormal findings of blood chemistry
CPT/HCPCS: 36415; 80053; 84443

== ENCOUNTER → 2023-10-21 | Outpatient (CLI) | payer OTHER ==
[2023-10-21 11:38] LABS: Albumin 4.4 g/dL (3.2-4.8); Bilirubin, Direct 0.2 mg/dL (<0.3); Bilirubin, Total 0.6 mg/dL (0.2-1.0); Total Protein 6.7 g/dL (5.7-8.2)
== END | disposition home or self-care (01) ==
LOC: LAB 10:33
PROVIDERS: ATTEND Internal Medicine
DX: R79.89 Other specified abnormal findings of blood chemistry (principal)
CPT/HCPCS: 36415; 80076

== ENCOUNTER → 2023-11-05 | Outpatient (CLI) | payer OTHER ==
[2023-11-05 10:18] LABS: Basophils # (auto) 0 10 ^3/uL (0-0.2); Basophils % (auto) 0.6 % (0.0-2.0); Eosinophils # (auto) 0.1 10 ^3/uL (0-0.8); Eosinophils % (auto) 1.2 % (0.0-7.0); Hematocrit 42.3 % (36.0-46.0); Hemoglobin 14.2 g/dL (12.2-16.2); Lymphocytes # (auto) 1.7 10 ^3/uL (0.4-5.4); Mean Corpuscular Hemoglobin 28.8 pg (28.0-32.0); Mean Corpuscular Hgb Conc. 33.5 g/dL (32.0-36.0); Monocytes # (auto) 0.4 10 ^3/uL (0-1.3); Monocytes % (auto) 6.7 % (0.0-12.0); Neutrophils # (auto) 3.2 10 ^3/uL (1.6-8.6); Neutrophils % (auto) 59.5 % (37.0-80.0); Nucleated Red Blood Cells % 0.1 %; Red Blood Cells 4.92 10^6/uL (4.0-5.20); Red Cell Distribution Width 13.5 % (11.8-14.3); White Blood Cell 5.4 10^3/uL (4.4-10.8)
[2023-11-05 11:01] LABS: Alanine Aminotransferase 32 U/L (7-40); Albumin 4.3 g/dL (3.2-4.8); Alkaline Phosphatase 142 U/L (46-116); Anion Gap 4 (5-15); Aspartate Aminotransferase 31 U/L (13-40); Bilirubin, Total 0.6 mg/dL (0.2-1.0); Blood Urea Nitrogen 20 mg/dL (9-23); Calcium 10.2 mg/dL (8.5-10.1); Carbon Dioxide 31 mmol/L (20-30); Chloride 105 mmol/L (98-107); Glucose 96 mg/dL (74-106); Potassium 4.5 mmol/L (3.5-5.1); Sodium 140 mmol/L (136-145); Total Protein 6.7 g/dL (5.7-8.2)
[2023-11-05 11:02] LABS: INR 1.04 (0.9-1.15); Partial Thromboplastin Time 34.8 SEC (24.5-34.5); Prothrombin Time 10.9 sec (9.3-11.8)
[2023-11-05 11:10] LABS: Urine Bacteria NONE SEEN /hpf (None Seen); Urine Blood Negative /uL (Negative); Urine Clarity Clear (Clear); Urine Color Yellow (Yellow); Urine Protein, UAD Negative (Negative); Urine Specific Gravity 1.014 (1.001-1.035); Urine Urobilinogen Normal (Negative); Urine WBC 2 /hpf (0 - 5); Urine pH 5.5 (5.0-8.0)
== END | disposition home or self-care (01) ==
LOC: LAB 09:56
PROVIDERS: ATTEND Ophthalmology
DX: H25.11 Age-related nuclear cataract, right eye (principal); H53.9 Unspecified visual disturbance
CPT/HCPCS: 36415; 80053; 81001; 85025; 85610; 85730; 87086

== ENCOUNTER → 2024-01-20 | Outpatient (CLI) | payer OTHER ==
[2024-01-20 09:23] LABS: Anion Gap 3 (5-15); Carbon Dioxide 30 mmol/L (20-30); Chloride 106 mmol/L (98-107); Potassium 4.2 mmol/L (3.5-5.1); Sodium 139 mmol/L (136-145)
[2024-01-20 09:24] LABS: Calcium 9.9 mg/dL (8.5-10.1)
[2024-01-20 09:28] LABS: Glucose 86 mg/dL (74-106)
[2024-01-20 09:29] LABS: BUN/Creatinine Ratio 18.9 (10.0-20.0); Blood Urea Nitrogen 20 mg/dL (9-23); Triglycerides 114 mg/dL (< 150)
[2024-01-20 09:30] LABS: LDL Cholesterol 155 mg/dL (< 100)
[2024-01-20 09:31] LABS: Cholesterol 232 mg/dL (< 200); HDL Cholesterol 54 mg/dL (40-59)
== END | disposition home or self-care (01) ==
LOC: LAB 08:31
PROVIDERS: ATTEND Internal Medicine
DX: E03.9 Hypothyroidism, unspecified (principal); N18.30 Chronic kidney disease, stage 3 unspecified; R79.89 Other specified abnormal findings of blood chemistry
CPT/HCPCS: 36415; 80048; 80061; 84443

== ENCOUNTER → 2024-02-13 | Outpatient (CLI) | payer OTHER ==
[2024-02-13 13:04] LABS: Albumin 4.1 g/dL (3.2-4.8); Bilirubin, Direct 0.1 mg/dL (<0.3); Bilirubin, Total 0.5 mg/dL (0.2-1.0); Total Protein 6.6 g/dL (5.7-8.2)
== END | disposition home or self-care (01) ==
LOC: LAB 11:51
PROVIDERS: ATTEND Internal Medicine
DX: E78.5 Hyperlipidemia, unspecified (principal)
CPT/HCPCS: 36415; 80076

== ENCOUNTER → 2024-07-21 | Outpatient (CLI) | payer OTHER ==
[~2024-07-21] MED LIST changes: -FLUO20TA36 PO; +FLUO20TA42 PO
[2024-07-21 11:17] LABS: Chloride 104 mmol/L (98-107); Potassium 4.4 mmol/L (3.5-5.1); Sodium 140 mmol/L (136-145)
[2024-07-21 11:18] LABS: Anion Gap 6 (5-15); Calcium 10.7 mg/dL (8.7-10.4); Carbon Dioxide 30 mmol/L (20-31)
[2024-07-21 11:23] LABS: BUN/Creatinine Ratio 22.6 (10.0-20.0); Blood Urea Nitrogen 28 mg/dL (9-23); Glucose 89 mg/dL (74-106)
== END | disposition home or self-care (01) ==
LOC: LAB 10:32
PROVIDERS: ATTEND Internal Medicine
DX: N18.30 Chronic kidney disease, stage 3 unspecified (principal)
CPT/HCPCS: 36415; 80048

== ENCOUNTER → 2024-07-30 | Outpatient (CLI) | payer OTHER | END | disposition home or self-care (01) | LOC: LAB 16:23 | PROVIDERS: ATTEND Internal Medicine | DX: N39.0 Urinary tract infection, site not specified (principal) | CPT/HCPCS: 87086 ==

== ENCOUNTER → 2024-10-29 | Outpatient (CLI) | payer OTHER | END | disposition home or self-care (01) | LOC: LAB 12:35 | PROVIDERS: ATTEND Internal Medicine | DX: I10 Essential (primary) hypertension (principal); N39.0 Urinary tract infection, site not specified | CPT/HCPCS: 36415; 82306; 82607; 83970 ==

== ENCOUNTER → 2024-11-26 | Outpatient (CLI) | payer OTHER ==
[2024-11-26 11:53] LABS: Albumin 4.5 g/dL (3.2-4.8); Anion Gap 8 (5-15); Aspartate Aminotransferase 29 U/L (13-40); BUN/Creatinine Ratio 24.8 (10.0-20.0); Bilirubin, Total 0.7 mg/dL (0.2-1.0); Calcium 10.3 mg/dL (8.7-10.4); Carbon Dioxide 29 mmol/L (20-31); Chloride 102 mmol/L (98-107); Glucose 84 mg/dL (74-106); Potassium 4.4 mmol/L (3.5-5.1); Sodium 139 mmol/L (136-145); Total Protein 7.3 g/dL (5.7-8.2)
[2024-11-26 11:58] LABS: Alanine Aminotransferase 47 U/L (7-40); Alkaline Phosphatase 128 U/L (46-116); Blood Urea Nitrogen 29 mg/dL (9-23)
== END | disposition home or self-care (01) ==
LOC: LAB 11:00
PROVIDERS: ATTEND Internal Medicine
DX: N18.32 Chronic kidney disease, stage 3b (principal); E03.9 Hypothyroidism, unspecified
CPT/HCPCS: 36415; 80053; 84443

== ENCOUNTER → 2024-12-09 | Outpatient (CLI) | payer OTHER | END | disposition home or self-care (01) | LOC: LAB 12:20 | PROVIDERS: ATTEND Internal Medicine | DX: N39.0 Urinary tract infection, site not specified (principal) | CPT/HCPCS: 87086 ==

== ENCOUNTER → 2024-12-16 | Outpatient (CLI) | payer OTHER ==
[~2024-12-16] VITALS: Ht 154.9 cm; Wt 73.9 kg
[2024-12-16] MEDS: REGADENOSON 0.4 MG/5 ML SYRG IV ONE ×2 (11:09→11:10)
--- NOTE | 2024-12-17 13:15 | DVHSR ---
APPROVED REPORT Exam: Nuclear Stress Test Indication: CHEST PAIN BMI: 0 Medical History Medical History: HLD, HTN Stress Test Details Stress Test: Pharmacologic stress testing performed using 0.4 mg of regadenoson per 5 mL given IV ov er 10 seconds. HR Resting HR: 63 bpmMax Heart Rate (APMHR): 138.057928 bpm Max HR Achieved: 90 bpmTarget HR (85% APMHR): 117.574128 bpm % of APMHR: 65.22 Recovery HR: 75 bpm BP Resting BP: 158/63 mmHg Recovery BP: 109/46 mmHg ECG Resting ECG: Sinus Rhythm Clinical Reason for Termination: Completed protocol Stress ECG Conclusion lvef 75% no severe ischemia noted ecg shows SR LAD NM EXAM: Myocardial Perfusion REST/STRESS Imaging Protocol: Rest Tc-99m/Stress Tc-99m 1 day Resting Data Rest SPECT myocardial perfusion imaging was performed in supine position 60 minutes following the int ravenous injection of 11.6 mCi of Tc-99m Sestamibi. Time of rest injection: 09:50 Date: 12/16/2024 Time of rest imagin:50 Date: 12/16/2024 Administration Route: IV Administration Site: Left AC Pharmacologic Stress Pharmacologic stress test was performed by injecting Regadenoson 0.4 mg IV push followed by the intra venous injection of 31.2 mCi of Tc-99m Sestamibi. Time of stress injection: 11:05 Date: 12/16/2024 Time of stress imagin:05 Date: 12/16/2024 Administration Route: IV Administration Site: Left AC Gated Stress SPECT was performed 60 minutes after stress injection. The images were gated to evaluate regional wall motion and calculate left ventricular ejection fracti on. Stress only was performed in the Supine position. Nuclear Conclusion Nuclear Findings: negative for ischemia lvef 75% no severe ischemia noted ecg shows SR LAD
== END | disposition home or self-care (01) ==
LOC: XYW 09:07
PROVIDERS: ATTEND Internal Medicine
DX: R07.9 Chest pain, unspecified (principal); I12.9 Hypertensive chronic kidney disease with stage 1 through stage 4 chronic kidney disease, or unspecified chronic kidney disease; N18.32 Chronic kidney disease, stage 3b; R06.02 Shortness of breath; E78.5 Hyperlipidemia, unspecified
CPT/HCPCS: 78452; 93017; A9500; J2785

== ENCOUNTER 2025-01-26 10:11 | Outpatient (CLI) | payer OTHER ==
[2025-01-26 10:38] LABS: Basophils # (auto) 0 10 ^3/uL (0-0.2); Basophils % (auto) 0.4 % (0.0-2.0); Eosinophils # (auto) 0 10 ^3/uL (0-0.8); Eosinophils % (auto) 0.2 % (0.0-7.0); Hematocrit 42.6 % (36.0-46.0); Hemoglobin 14.3 g/dL (12.2-16.2); Lymphocytes # (auto) 1.6 10 ^3/uL (0.4-5.4); Lymphocytes % (auto) 23.1 % (10.0-50.0); Mean Corpuscular Hemoglobin 28.8 pg (28.0-32.0); Mean Corpuscular Hgb Conc. 33.6 g/dL (32.0-36.0); Mean Corpuscular Volume 85.8 fL (80.0-100.0); Monocytes # (auto) 0.6 10 ^3/uL (0-1.3); Neutrophils # (auto) 4.6 10 ^3/uL (1.6-8.6); Neutrophils % (auto) 67.3 % (37.0-80.0); Nucleated Red Blood Cells % 0.1 %; Platelet Count (auto) 227 10^3/uL (140-450); Red Blood Cells 4.96 10^6/uL (4.0-5.20); Red Cell Distribution Width 12.9 % (11.8-14.3); White Blood Cell 6.8 10^3/uL (4.4-10.8)
== END 2025-01-26 17:00 | disposition home or self-care (01) ==
LOC: LAB 10:11
PROVIDERS: ATTEND Internal Medicine
DX: I12.9 Hypertensive chronic kidney disease with stage 1 through stage 4 chronic kidney disease, or unspecified chronic kidney disease (principal); N18.32 Chronic kidney disease, stage 3b
CPT/HCPCS: 36415; 85025

== ENCOUNTER 2025-02-03 11:54 | Outpatient (CLI) | payer OTHER ==
[2025-02-03 11:57] LABS: Urine Bacteria None Seen /hpf (None Seen)
[2025-02-03 12:21] LABS: Urine Blood Negative /uL (Negative); Urine Budding Yeast OCCASIONAL /hpf (None Seen); Urine Clarity Clear (Clear); Urine Color Yellow (Yellow); Urine Protein, UAD Negative (Negative); Urine Specific Gravity 1.014 (1.001-1.035); Urine Squamous Epithelial Cell FEW /hpf (<5); Urine Urobilinogen Normal (Negative); Urine WBC 7 /HPF (0-5); Urine pH 7.5 (5.0-9.0)
== END 2025-02-03 17:00 | disposition home or self-care (01) ==
LOC: LAB 11:54
PROVIDERS: ATTEND Internal Medicine
DX: N39.0 Urinary tract infection, site not specified (principal)
CPT/HCPCS: 81001; 87086

== ENCOUNTER 2025-04-15 16:23 | Outpatient (CLI) | payer OTHER | END 2025-04-15 17:00 | disposition home or self-care (01) | LOC: LAB 16:23 | PROVIDERS: ATTEND Internal Medicine | DX: N39.0 Urinary tract infection, site not specified (principal) | CPT/HCPCS: 87086 ==

== ENCOUNTER 2025-05-06 14:16 | Outpatient (CLI) | payer OTHER | END 2025-05-06 17:00 | disposition home or self-care (01) | LOC: LAB 14:16 | PROVIDERS: ATTEND Internal Medicine | DX: N18.31 Chronic kidney disease, stage 3a (principal); E78.5 Hyperlipidemia, unspecified | CPT/HCPCS: 36415; 83036 ==

== ENCOUNTER → 2025-08-18 | Outpatient (CLI) | payer OTHER ==
[2025-08-18 11:17] LABS: Alanine Aminotransferase 30 U/L (7-40); Albumin 4.4 g/dL (3.2-4.8); Alkaline Phosphatase 111 U/L (46-116); Anion Gap 7 (5-15); BUN/Creatinine Ratio 15.3 (10.0-20.0); Blood Urea Nitrogen 18 mg/dL (9-23); Calcium 10.3 mg/dL (8.7-10.4); Carbon Dioxide 31 mmol/L (20-31); Chloride 104 mmol/L (98-107); Glucose 80 mg/dL (74-106); Potassium 4.6 mmol/L (3.5-5.1); Sodium 142 mmol/L (136-145); Total Protein 7.3 g/dL (5.7-8.2)
[2025-08-18 11:18] LABS: Bilirubin, Total 0.7 mg/dL (0.2-1.0)
== END | disposition home or self-care (01) ==
LOC: LAB 09:19
PROVIDERS: ATTEND Internal Medicine
DX: N18.31 Chronic kidney disease, stage 3a (principal); E78.5 Hyperlipidemia, unspecified
CPT/HCPCS: 36415; 80053; 85652; 86141